=== PATIENT | male | born 1990 | race African-American/Black ===

== ENCOUNTER 2021-07-13 21:08 | Emergency (ER) | payer OTHER ==
[~2021-07-13] VITALS: Ht 175.3 cm; Wt 117.9 kg
[2021-07-13] MEDS ORDERED: HYDROCODON-ACE1 EA10 PO (23:49)
[2021-07-13] MEDS ORDERED: ELIQUIS5 MG PO (23:49)
== END 2021-07-14 00:21 | disposition home or self-care (01) ==
LOC: ED 21:08
DX: S16.1XXA Strain of muscle, fascia and tendon at neck level, initial encounter (principal); S29.012A Strain of muscle and tendon of back wall of thorax, initial encounter; I26.99 Other pulmonary embolism without acute cor pulmonale; V59.40XA Driver of pick-up truck or van injured in collision with unspecified motor vehicles in traffic accident, initial encounter
CPT/HCPCS: 36415; 70450; 71260; 72125; 80053; 81001; 83690; 85025; 99284-25; G0480; Q9967